=== PATIENT | female | born 1935 | race Caucasian/White ===

== ENCOUNTER 2018-09-13 09:23 | Day surgery (SDC) | payer OTHER ==
[2018-09-13] MEDS ORDERED: BENZOCAINE UNIT DOSE SPRAY HURRICAINE MM ONE (09:30)
[2018-09-13] MEDS ORDERED: ATROPINE SULFATE 1 MG/10 ML SYR IVP ONE (09:30)
[2018-09-13] MEDS ORDERED: NS 500 ML IV ONE (09:30)
[2018-09-13] MEDS ORDERED: fentaNYL 100 MCG/2 ML INJ IVP ONE (09:30)
[2018-09-13] MEDS ORDERED: MIDAZOLAM 2 MG/2 ML VIAL IVP ONE (09:30)
--- NOTE | 2018-09-13 10:16 | PDGENHP ---
History & Physical Chief Complaint: palpitations Relevant Physical Exam: s1s2 tachycardic. cta. ao3 Cardiorespiratory Assessment: for red guided cv. pt was scheduled on Wed with Dr. Agarwal but called in with worse sx. Today she is in AT with rate 146 bpm. Understands she needs to continue Eliquis.
[2018-09-13 10:28] LABS: INR 1.45 (0.83-1.16)
--- NOTE | 2018-09-13 11:19 | PDANEPAE ---
ANE Past Medical History - Cardiovascular History Hx Hypertension: No Hx Arrhythmias: Yes Hx Chest Pain: No Hx Coronary Artery / Peripheral Vascular Disease: No Hx CHF / Valvular Disease: No Hx Palpitations: No Cardiovascular History Comment: ATRIAL FIB - DX'd 2 MONTHS AGO. MITRAL REGURG. MITRAL & TRICUSPID INSUFFICIENCY. BIATRIAL ENLARGEMENT. CHRONIC CARDIOMYOPATHY. SOB WITH EXERTION. MILLICENT CARDIOVERSION 08/02/15 - Pulmonary History Hx COPD: No Hx Asthma/Reactive Airway Disease: No Hx Recent Upper Respiratory Infection: No Hx Oxygen in Use at Home: No Hx Sleep Apnea: No Pulmonary History Comment: SOB WITH EXERTION, GETTING WORSE DAILY - Neurologic History Hx Cerebrovascular Accident: No Hx Seizures: No Hx Dementia: No - Endocrine History Hx Diabetes: No - Renal History Hx Renal Disorders: No - Liver History Hx Hepatic Disorders: No - Neurological & Psychiatric Hx Hx Neurological and Psychiatric Disorders: No - Cancer History Hx Cancer: Yes Cancer History Comment: BREAST CA, R BREAST/LYMPH NODES REMOVED. SKIN - FACE BASAL CELL - Congenital Disorder History Hx Congenital Disorders: No - GI History Hx Gastrointestinal Disorders: No - Other Health History Other Health History: NEG - Chronic Pain History Chronic Pain: No - Surgical History Prior Surgeries: MILLICENT CARDIOVERSION 08/02/15. R DISTAL RADIUS ORIF 07/11/15. MASTECTOMY TRI & LYMPHECTOMY R. TONSILLECTOMY. L WRIST FX ANE Review of Systems Review of Systems: - Pacemaker Date Pacemaker Last Checked: 10/08/2015 ANE Patient History - Allergies Allergies/Adverse Reactions: hydrocodone Allergy (Severe, Verified 11/05/15 11:35) N&V Sulfa (Sulfonamide Antibiotics) Allergy (Verified 11/05/15 11:35) Other-Enter Comments - Home Medications Home Medications: Herbals/Supplements -Info Only 1 ea PO DAILY 10/01/15 [Last Taken 09/12/18] Multivitamins [Multivitamin (*)] 1 each PO DAILY 10/01/15 [Last Taken 09/12/18] Apixaban [Eliquis] 5 mg PO DAILY 09/13/18 [Last Taken 09/12/18] - Smoking Hx Smoking Status: Former smoker - Family Anes Hx Family Hx Anesthesia Complications: NEG ANE Labs/Vital Signs - Labs Result Diagrams: 09/13/18 10:05 - Vital Signs Height: 180.34 cm Weight: 77.111 kg ANE Physical Exam - Airway Neck exam: FROM Mallampati Score: Class 1 Mouth exam: normal dental/mouth exam - Pulmonary Pulmonary: no respiratory distress, clear to auscultation - Cardiovascular Cardiovascular: tachycardia - ASA Status ASA Status: II ANE Anesthesia Plan Anesthesia Plan: GA with mask
[2018-09-13] MEDS ORDERED: PROPOFOL 200 MG/20 ML VIAL ONE (11:33)
--- NOTE | 2018-09-13 11:54 | PDTEE1 ---
MILLICENT Cardioversion Procedure Procedure: electrical cardioversion, transesophageal echo Indications: other Consent: signed and in chart Anticoagulation: eliquis Procedural Details: Pads were placed in anterior-posterior position. MILLICENT probe was advanced and standard images obtained. There is no evidence of left atrial or left atrial appendage thrombus. Synchronized cardioversion attempt #1: 100J Results: normal sinus rhythm Conclusions: successful MILLICENT cardioversion Patient Problems: Problems Problem Status Onset Severe mitral regurgitation Chronic Severe tricuspid regurgitation Chronic Persistent atrial fibrillation Chronic Coronary artery disease (CAD) excluded Acute Valvular cardiomyopathy Acute S/P mitral valve repair Acute S/P tricuspid valve repair Acute S/P ablation of atrial fibrillation Acute Complete heart block, post-surgical Acute S/P placement of cardiac pacemaker Acute Acute blood loss anemia Acute Atrial fibrillation with rapid ventricular response Acute
--- NOTE | 2018-09-13 13:02 | POSTANESTH ---
Post Anesthetic Evaluation Cardiovascular Status: Normal, Stable Respiratory Status: Normal, Stable Level of Consciousness/Mental Status: Can Participate in Eval Pain Control: Adequate, Prn Tx Ordered Nausea/Vomiting Control: Adequate, Prn Tx Ordered Complications Possibly Related to Anesthesia: None Noted
--- NOTE | 2018-09-14 05:42 | CPEKG ---
Test Reason : OPEN Blood Pressure : / mmHG Vent. Rate : 143 BPM Atrial Rate : 139 BPM P-R Int : 000 ms QRS Dur : 084 ms QT Int : 334 ms P-R-T Axes : 000 -21 066 degrees QTc Int : 515 ms Supraventricular tachycardia Borderline left axis deviation ST depression, probably rate related Compared with 11/04/2018, SVT now present Confirmed by Jackie Sanchez ([id number]) on 09/14/2018 5:42:26 AM Referred By: Skinny Lou Confirmed By:Jackie Sanchez
--- NOTE | 2018-09-14 05:45 | CPEKG ---
Test Reason : OPEN Blood Pressure : / mmHG Vent. Rate : 077 BPM Atrial Rate : 072 BPM P-R Int : 166 ms QRS Dur : 089 ms QT Int : 374 ms P-R-T Axes : 084 -19 035 degrees QTc Int : 424 ms Atrial-paced complexes Borderline left axis deviation Compared with 09/13/2018 at 9:54 am, atrial pacing now present Confirmed by Jackie Sanchez ([id number]) on 09/14/2018 5:44:37 AM Referred By: Skinny Lou Confirmed By:Jackie Sanchez
== END 2018-09-13 14:00 | disposition home or self-care (01) ==
LOC: FCATH 09:23
PROVIDERS: ATTEND Internal Medicine Cardiovascular Disease
PROC: 5A2204Z Restoration of Cardiac Rhythm, Single (ICD-10-PCS; principal; 2018-09-13)
PROC: B245ZZ4 Ultrasonography of Left Heart, Transesophageal (ICD-10-PCS; principal; 2018-09-13)
DX: I47.1 Supraventricular tachycardia (principal); Z95.0 Presence of cardiac pacemaker; Z79.01 Long term (current) use of anticoagulants; Z85.3 Personal history of malignant neoplasm of breast; Z90.11 Acquired absence of right breast and nipple; Z85.828 Personal history of other malignant neoplasm of skin; Z87.891 Personal history of nicotine dependence
CPT/HCPCS: J0461; J2704

== ENCOUNTER 2018-09-14 14:25 | Observation (INO) | payer OTHER ==
[2018-09-14] MEDS ORDERED: ONDANSETRON DISINTEGRATING 4 MG TAB PO PRN (16:08)
[2018-09-14] MEDS ORDERED: ACETAMINOPHEN 325 MG TAB PO PRN ×2 (16:08→18:43)
[2018-09-14] MEDS ORDERED: FUROSEMIDE 40 MG/4 ML VIAL IVP ONE ×2 (16:12→20:00)
--- NOTE | 2018-09-14 16:56 | GHP ---
[f rep st] HISTORY AND PHYSICAL DATE OF ADMISSION: 09/14/2018 PRIMARY DOWEL MAKER: Dr. Cabral. CHIEF COMPLAINT: Shortness of breath. HISTORY OF PRESENT ILLNESS: Destiny is an 83-year-old female, who was recently found to have atrial tachycardia and atrial flutter on pacer check. Apparently , it had been going on for a week or so when it was detected on routine interrogation. She has a history of a mitral valve repair, tricuspid valve repair, and maze procedure with left atrial appendage resection in 2016. This was complicated by intermittent complete heart block, for which she had a pacer implanted. She had been off systemic anticoagulation for the recent past due to no episodes of atrial fibrillation. After being found to be in atrial fibrillation recently, she started to note her heart was racing quite a bit more. She therefore proceeded to MILLICENT-guided cardioversion yesterday. She called to our office today after awakening this morning and noting that she was very short of breath with minimal exertion. Typically, she will get up in the morning and go feed the chickens. This is an uphill walk. With that she noted a feeling of shortness of breath, which is quite unusual for her. She also notices a sensation of chest tightness. She denies any cough, hemoptysis, PND, orthopnea, palpitations, chest pain, peripheral edema, or abdominal distention. She has not been having any fever, chills. PAST MEDICAL HISTORY: 1. Paroxysmal atrial fibrillation. 2. Complete heart block. 3. Mitral valve repair. 4. Tricuspid valve repair. 5. Permanent pacemaker implantation. 6. Maze procedure. 7. Left atrial appendage ligation. 8. History of breast biopsy and mastectomy. SOCIAL HISTORY: Patient is a former smoker. She reports occasional alcohol. She is . Her daughter, Ting, is a physician who lives out of state. MEDICATIONS: Outpatient medications include only Eliquis 5 mg p.o. twice daily. ALLERGIES: Hydrocodone and opioids. REVIEW OF SYSTEMS: As per HPI. A complete 10-point review of systems was obtained and is negative except for what is dictated. PHYSICAL EXAM: VITALS: No vitals have been entered yet. GENERAL: She is a very pleasant female in no apparent distress. HEENT: Head is normocephalic, atraumatic. Eyes are without scleral icterus. Mucous membranes are moist. NECK: She does have slight JVD. HEART: Regular rate and rhythm with no rubs, gallops, or murmurs. LUNGS: Clear to auscultation. ABDOMEN: Soft with normoactive bowel sounds. SKIN: Warm and dry without any significant edema. PSYCH: Normal mood and affect. NEURO: No focal deficits detected. : No Bourne present. DATA REVIEWED: 12-lead ECG from yesterday personally interpreted, demonstrates an A paced rhythm. This was post cardioversion. I do not have the MILLICENT report, but it was reported that she has moderate mitral regurgitation on this. Her last in office transthoracic echocardiogram is dated 03/27/2016, EF of 65%. Pseudo normalized pattern and elevated LV filling pressures. Mildly dilated right atrium, mitral annuloplasty ring is present. RVSP is within normal limits. IMPRESSION AND PLAN: Ms Destiny Tomlinson is an 83-year-old female, who presents with acute onset of shortness of breath starting this morning. This is associated with chest constriction. 1. Congestive heart failure. This is by acute onset of symptoms and jugular venous distention present on physical exam. We will obtain BNP and chest x-ray now. She will be given 1 dose of Lasix now. 2. History of mitral valve disease and tricuspid valve disease. She is status post mitral valve repair and tricuspid valve repair. Transesophageal echo was obtained and reports moderate mitral regurgitation. We will obtain transthoracic echo now to further evaluate tricuspid valve repair, as well as ejection fraction in sinus rhythm 3. Paroxysmal atrial fibrillation. She has a CHADS-VASc of likely 3 or 4. She will be continued on her Eliquis. She appears to be maintaining sinus rhythm at this point. 4. Elevated blood pressures. This may be the canal driver for her recurrent atrial fibrillation. We will discuss starting antihypertensive therapy in this admission. 5. Length of stay: She will be admitted as an observation visit for now. Should she require more IV Lasix dosing versus further testing, she will be transitioned to inpatient status. /[id number]/MODL MTDD
--- NOTE | 2018-09-14 18:30 | CPEKG ---
Test Reason : OPEN Blood Pressure : / mmHG Vent. Rate : 092 BPM Atrial Rate : 088 BPM P-R Int : 163 ms QRS Dur : 087 ms QT Int : 361 ms P-R-T Axes : 102 000 032 degrees QTc Int : 447 ms Atrial-paced complexes Confirmed by Jackie Sanchez ([id number]) on 09/14/2018 6:29:33 PM Referred By: Skinny Lou Confirmed By:Jackie Sanchez
[2018-09-14 18:38] LABS: PLATELET COUNT 203 10^3/uL (150-400)
[2018-09-14] MEDS: APIXABAN 5 MG TAB PO SCH (20:38)
[2018-09-15] MEDS: APIXABAN 5 MG TAB PO SCH (08:45)
[2018-09-15 12:24] VITALS: BP 117/72
--- NOTE | 2018-09-15 12:29 | ASMTDCNOTE ---
Case Management Discharge Discharge Order Complete? Answers: Yes Patient to Obtain Answers: Independently Medications Transportation Arranged Answers: Family/Friends Discharge Comments Notes: Patient is an 83-year old female. Patient came in with shortness of breath. CM met with patient. Patient lives with her daughter and family. Patients son is transporting her home. Patient is medically discharging independent. No further CM needs noted at this time. Date Signed: 09/15/2018 12:28 PM Electronically Signed By:Val Staples
--- NOTE | 2018-09-15 12:35 | ASDISCHSUM ---
Discharge Information Plan Status:Home with No Needs Medically Cleared to Leave: Discharge Date: CM D/C Disposition:Home, Routine, Self-Care ADT D/C Disposition:Home, Routine, Self-Care Projected Discharge Date:09/15/2018 12:00 AM Transportation at D/C:Friend Discharge Delay Reason: Follow-Up Date:09/15/2018 12:00 AM Discharge Slot: Final Diagnosis: Placement Information Patient Contact Information Contact Name:REBECCA Relationship:Ilya Address:[address] City:[place] Alternate Phone: State/Zip Code:[place] [address] Email: Financial Information Financial Class:Medicare Advantage Plans Primary Plan Desc:[facility] ADV[facility]AGE PLANS Primary Plan Number:[id number] Secondary Plan Desc: Secondary Plan Number: Assessment Information Case Management Discharge Plan Note Case Management Discharge Discharge Order Complete? Answers: Yes Patient to Obtain Answers: Independently Medications Transportation Arranged Answers: Family/Friends Discharge Comments Notes: Patient is an 83-year old female. Patient came in with shortness of breath. CM met with patient. Patient lives with her daughter and family. Patients son is transporting her home. Patient is medically discharging independent. No further CM needs noted at this time. Date Signed: 09/15/2018 12:28 PM Electronically Signed By:Val Staples LACE JORJE Length of stay for Answers: 1 day current admission Acuity / Level of Answers: No Care: Did the patient have an inpatient admission? Comorbidities - select Answers: Other Notes: Atrial all that apply Fibrillation, complete heart block, # of Emergency department Answers: 0 visits in the last 6 months Score: 2 Date Signed: 09/15/2018 12:34 PM Electronically Signed By:Val Staples Intervention Information
--- NOTE | 2018-09-15 13:54 | GDS ---
[f rep st] DISCHARGE SUMMARY DISCHARGE DIAGNOSES: 1. Diastolic congestive heart failure, likely related to 1 week of atrial fibrillation with rapid ve ntricular response. 2. Atrial fibrillation with rapid ventricular response, status post recent cardioversion on 09/14/19 19. 3. History of mitral valve disease and tricuspid valve disease, status post mitral , tricuspid valve repairs, Maze, left atrial appendage ligation. PROCEDURES: 09/15/2018, chest x-ray, which shows chronic small right pleural effusion versus right b asilar pleural parenchymal scarring. BRIEF HISTORY: Please see dictated H and P for complete details. In brief, the patient is an 83-yea r-old female with a history of mitral, tricuspid valve surgery in 2016. She had been noted to have a trial fibrillation perioperatively. She has been doing well and had been off anticoagulation. Recen arpita on pacer check, she was noted to have atrial fibrillation for the past week. Over the next sever al days, she started to feel her heart was racing quite a bit more. She, therefore, proceeded to MILLICENT -guided cardioversion on 09/13/2018. The next day, she noted acute onset of dyspnea on minimal exert ion. Her BNP in this admission was mildly elevated at 548. She had an echocardiogram, which prelimi narily shows EF of 63% with mitral and tricuspid valve rings with mild MR and trace TR. The patient was treated with 40 mg of IV Lasix and had 3000 mL of urine output overnight. On day of discharge, she is feeling quite well. Her dyspnea has resolved. She has not noted any PND, orthopne a, chest constriction, palpitations. PHYSICAL EXAM: VITAL SIGNS: On day of discharge, blood pressure 117/72, heart rate of 86, respirati ons 18, O2 saturation 93% on room air, temp of 98.6 degrees Fahrenheit. Her admission weight was 75 kilos. Her discharge weight is 70 kilos. GENERAL: She is a very pleasant female in no apparent dis tress. HEENT: Normocephalic, atraumatic. Eyes are without scleral icterus. HEART: Regular rate a nd rhythm. LUNGS: Clear. EXTREMITIES: Without any edema. LABORATORY/IMAGING: Sodium 132, potassium 4.2, chloride 96, CO2 28, BUN 9, creatinine 0.6, glucose o f 84. TSH 1.98. A 12-lead ECG shows A paced rhythm. RESULTS PENDING: None. DIET: Low-salt diet. ACTIVITY: As tolerated. DISCHARGE MEDICATIONS: Please see medication reconciliation. She will be discharged on Eliquis 5 mg p.o. b.i.d. she is offered a beta waqas therapy, but would like to defer this. She is also offer ed p.o. Lasix, she would like to take this as a p.r.n. basis. DISCHARGE INSTRUCTIONS: 1. Follow up with EP as scheduled. 2. Daily weights with blood pressure and pulse checks. 3. Report any increase in weight greater than 2 pounds in a day. /[id number]/MODL
--- NOTE | 2018-09-15 16:40 | ECHO ---
[email or web address] [address] Main: [phone] Echocardiography Examination Transthoracic Name: DOC HANSEN MR#: [id number] Study Date: 09/15/2018 Study Time: 10:36 AM Date of : 1935 Age: 83 year(s) Height: 180.3 cm (71 in.) Weight: 72.58 kg (160 lb.) BSA: 1.92 m2 Gender: Female Examination: Echo Contrast: Image Quality: Rhythm: Normal sinus rhythm Heart Rate: 94 bpm BP: 111 mmHg/70 mmHg Indication: CHF, Mitral and Tricuspid valved repair, Pacemaker Procedure Staff Referring Physician: Metal Sprayer [employer]: Ronni Parker RDCS Reading Physician: Yovanny Oliveira MD Requesting Provider: Ordering Physician: Ting Fernandez Indication: CHF, Mitral and Tricuspid valved repair, Pacemaker Measurements Chambers AV/MV Label Value Normal Value Label Value Normal Value LVOT Vmax 0.66 m/s (0.7m/s - 1.1m/s) MV E Vmax 1.9 m/s LVOTd 1.9 cm (1.8cm - 2cm) MV A Vmax 1.23 m/s LVOT VTI 11.8 cm (18cm - 22cm) MV E/A 1.54 LVDd, MM 4 cm (3.9cm - 5.3cm) MV VTI 43.1 cm LVDd, 2D 4.3 cm (3.9cm - 5.3cm) MVA D (continuity eq.) 0.8 cm2 LVDs, MM 2.6 cm (2cm - 3.8cm) MV PGmax 14 mmHg LVDs, 2D 3 cm (2.1cm - 4cm) MV PGmean 6 mmHg IVSd, MM 1 cm (0.6cm - 0.9cm) MV Giovanna 3.1 cm IVSd, 2D 0.9 cm (0.6cm - 1.1cm) MR Reg. Volume 23 ml LVPWd, MM 0.9 cm (0.6cm - 0.9cm) MR Reg. Fraction 7 % LVPWd, 2D 0.9 cm MR Vmax 4.57 m/s LVEF, 2D 60 % (54% - 74%) MR VTI 119 cm LVOT PGmean 1 mmHg MR (ERO) 0.19 cm2 LVOT Vmean 0.41 m/s MR PISA Radius 0.6 cm RVDd, 2D 1.7 cm (1.9cm - 3.8cm) MR PISA Alias V. 38.5 cm/s LADs, 2D 4.7 cm (2.7cm - 3.8cm) TV/PV RA Area 19 cm2 Label Value Normal Value Additional Vessels RA Pressure 5 mmHg Label Value Normal Value RVSP 35 mmHg Patient: DOC HANSEN Study Date: 09/15/2018 Page 1 of 2 10:36 AM AoAsc 3 cm TR Pmax 30 mmHg AoRoot, MM 3.5 cm (2.2cm - 3.7cm) TR Vmax 2.76 m/s WV End rushing Zain 0.86 cm/s PV PGmax 3 mmHg PV Vmax, Caliper 0.8 m/s (0.6m/s - 0.9m/s) Conclusions 1. The left ventricle is normal in size and function. The ejection fraction is 60%. 2. The mitral valve is status post repair. The mean gradient is 6 mm of mercury. There is moderate mitral regurgitation. 3. The aortic valve is trileaflet. There is no aortic stenosis or insufficiency. 4. The tricuspid valve is status post repair. There is trivial tricuspid regurgitation. 5. The pulmonary artery pressure estimate is 35 mm of mercury. 6. There is biatrial enlargement. Findings Left Ventricle: Left ventricle is normal in size. The EF is visually estimated to be 60 %. EF range is estimated at 60 % - 65 %. Left ventricle wall thickness is normal. There is paradoxic septal motion suggestive of bundle branch block, paced cardiac rhythm, or prior cardiac surgery. Cannot determine LAP and Diastolic Dysfunction Grade. No LV hypertrophy. Right Ventricle: Normal size right ventricle. Right ventricular systolic function is normal. There is a pacemaker lead noted in the right ventricle. Left Atrium: The left atrium is moderately dilated. Mitral Valve: Moderate mitral regurgitation. An annuloplasty ring is noted in the mitral valve position. The mean gradient is 6 mm of mercury. Aortic Valve: No aortic valve regurgitation. There is no aortic stenosis. The aortic valve is trileaflet. Tricuspid Valve: Trivial tricuspid regurgitation. Right Ventricular systolic pressure is measured at 35 mmHg. Pulmonary artery pressure normal. The tricuspid valve is status post repair. Pulmonic Valve: Pulmonic leaflets are normal in appearance and function. Trivial pulmonic valve regurgitation is present. Aorta: The aorta is normal. The aortic root size in M-mode measures 3.5 cm. The ascending aorta measures 3.0 cm. Aorta Measurements AoRoot, MM is 3.5 cm. Pericardium: No pericardial effusion. Exam Details Procedure Ordered: Echo (No Signature Object) Patient: DOC HANSEN Study Date: 09/15/2018 Page 2 of 2 10:36 AM [id number]
== END 2018-09-15 15:24 | disposition home or self-care (01) ==
LOC: F2W 15:05
PROVIDERS: ADMIT Internal Medicine Cardiovascular Disease; ATTEND Internal Medicine Cardiovascular Disease
DX: I50.30 Unspecified diastolic (congestive) heart failure (principal); I48.0 Paroxysmal atrial fibrillation; Z95.0 Presence of cardiac pacemaker; Z79.01 Long term (current) use of anticoagulants
CPT/HCPCS: 71046; 93005; 93306; G0378; G0379; J1940

== ENCOUNTER 2018-10-28 10:35 | Emergency (ER) | payer OTHER | END 2018-10-28 13:34 | disposition home or self-care (01) ==

== ENCOUNTER 2018-10-28 18:01 | Inpatient (IN) | payer OTHER ==
[2018-10-28 19:40] LABS: PLATELET COUNT 209 10^3/uL (150-400)
[2018-10-28 19:57] LABS: INR 1.17 (0.83-1.16); PROTIME(PATIENT) 14.4 SEC (12.0-15.0)
[2018-10-28] MEDS ORDERED: ACETAMINOPHEN 325 MG TAB PO PRN (20:19)
--- NOTE | 2018-10-28 20:24 | EDPHY ---
H & P Time Seen by Provider: 10/28/18 18:18 HPI/ROS: Chief complaint. Confusion HPI. Patient is an 83-year-old female seen earlier today for confusion that seemed to have resolved and had a relatively normal workup. She went home and slept. Then she awoke and again felt her thoughts were confused and she complains of waves of discomfort all over. On further questioning she says her discomfort is not pain but ill that he is feeling and goes from head to toes. Denies sickness or injury. Slight headache. No change in vision. No chest discomfort or trouble breathing. No abdominal pain. No focal weakness to arms or legs. The workup this morning revealed a sodium of 127 otherwise a normal workup. ROS 10 systems were reviewed and negative with the exception of the elements mentioned in the history of present illness Past Medical/Surgical History: Breast cancer with right lumpectomy and partial mastectomy, atrial fibrillation , cardiomyopathy, cardiac arrest with pacemaker and complete heart block. Mitral valve and tricuspid valve repair. Maze procedure. Social History: Single, nonsmoker, no alcohol Smoking Status: Former smoker Physical Exam: General Appearance: Alert pleasant well-developed female mild distress. Vital signs are stable. Eyes: Pupils equal and round no pallor or injection. ENT, tympanic membranes are normal. Pharynx without injection. Respiratory: There are no retractions, lungs are clear to auscultation. Cardiovascular: Regular rate and rhythm. Gastrointestinal: Abdomen is soft and nontender, no masses, bowel sounds normal. Neurological: Awake and alert, sensory and motor exams grossly normal. Speech is normal. Cranial nerves are normal. There is no pronator drift. Finger-to- nose is normal. [id number] is normal. Skin: Warm and dry, no rashes. Musculoskeletal: Neck is supple nontender. Extremities symmetrical, full range of motion. Psychiatric: Patient is oriented X 3, there is no agitation. Constitutional: Initial Vital Signs Temperature (C) 36.7 C 10/28/18 18:05 Heart Rate 86 10/28/18 18:05 Respiratory Rate 18 10/28/18 18:05 Blood Pressure 139/71 H 10/28/18 18:05 O2 Sat (%) 94 10/28/18 18:05 O2 Delivery Mode Room Air Allergies/Adverse Reactions: hydrocodone Allergy (Severe, Verified 10/28/18 18:05) N&V Opioids - Morphine Analogues Allergy (Verified 10/28/18 18:05) Nausea/Vomiting Sulfa (Sulfonamide Antibiotics) Allergy (Verified 10/28/18 18:05) Boil Home Medications: Medication Instructions Recorded Herbals/Supplements -Info Only 1 ea PO DAILY 10/01/15 Apixaban [Eliquis] 5 mg PO BID 09/13/18 Calcium Carbonate [Oyster Shell 500 mg PO DAILY 10/28/18 Calcium 500 mg (*)] Cholecalciferol Vit D3 [Vitamin D3 1,000 units PO DAILY 10/28/18 (*)] Cyanocobalamin [Vitamin B12 (*)] 1,000 mcg PO DAILY 10/28/18 Medical Decision Making - Diagnostics EKG Interpretation: EKG interpreted by me shows normal sinus rhythm normal interval and axis. It is a paced rhythm. No significant ST elevation or depression. Anterior T flattening in leads V2, V3. No ectopy. Rate is 79 Imaging Results: Head CT from earlier today is reviewed by me and is normal Procedures: IV normal saline ED Course/Re-evaluation: I spoke with patient's daughter who is a physician in [place] on the telephone. The patient and I discussed laboratory evaluation treatment plan including recommendation for admission. She expresses understanding and agreement I consulted discussed case with Dr. Kaplan for Neurology who recommends no further imaging tonight I consulted discussed case with Dr. Han, hospitalist, who agrees to the admission Patient is found to have a sodium of 120 down from 127 earlier today. I spoke again by telephone to the patient's daughter and we discussed the change in the sodium and the plan for admission as well as consults for Neurology. She expresses understanding and agreement Differential Diagnosis: I considered transient global amnesia. There is no evidence of intracranial bleeding and the patient is on Eliquis. I do not think that this is thrombotic or cause a stroke. She has a nonlocalizing physical exam. I suspect that her symptoms are caused by her sodium being low and further dropped from 127-120 Departure - Departure Disposition: [facility] Inpatient Acute Clinical Impression: Hyponatremia Altered mental status Qualifiers: Altered mental status type: disorientation Qualified Code(s): R41.0 - Disorientation, unspecified Condition: Fair
--- NOTE | 2018-10-28 20:36 | CPEKG ---
Test Reason : OPEN Blood Pressure : / mmHG Vent. Rate : 079 BPM Atrial Rate : 079 BPM P-R Int : 160 ms QRS Dur : 100 ms QT Int : 365 ms P-R-T Axes : 098 -06 028 degrees QTc Int : 419 ms Atrial-paced complexes Borderline T abnormalities, anterior leads Confirmed by Amor Vargas ([id number]) on 10/28/2018 8:35:39 PM Referred By: AMOR VARGAS Confirmed By:Amor Vargas
[2018-10-28] MEDS ORDERED: ONDANSETRON 4 MG/2 ML VIAL ONE (21:22)
--- NOTE | 2018-10-28 21:42 | PDGENHP ---
History and Physical - Chief Complaint confusion - History of Present Illness 83yo F with history of MVR, CHB s/p PPM, atrial flutter on eliquis who presents with confusion. Her son brought her to the ED this morning after she woke up confused. 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 In the ED, a non-contrasted CT head was unremarkable. She had a non-focal neurologic exam. Blood work was significant for a serum sodium of 127. A UA was unremarkable. Normal saline was ordered but the patient declined and did not receive any fluids. Her mental status reportedly improved some and she was discharged to home with instructions for close follow up with her PCP regarding the low sodium level. At home, she took a nap but woke up not feeling right so she re-presented to the ED at the [facility] (her daughter is an MD in [place]). Her serum sodium was found to be 120. Upon my evaluation, she has a difficult time characterizing why she feels different but she "just feels off." She had one episode of emesis and remains slightly nauseated but otherwise denies recent fevers, chills, diarrhea , abdominal pain, shortness of breath, leg swelling. No recent medication changes. She has not been thirsty and has not been drinking an excessive amount of water. She has been urinating normally. She is slow to respond. She is being admitted for further evaluation and care. History Information - Allergies/Home Medication List Allergies/Adverse Reactions: hydrocodone Allergy (Severe, Verified 10/28/18 18:05) N&V Opioids - Morphine Analogues Allergy (Verified 10/28/18 18:05) Nausea/Vomiting Sulfa (Sulfonamide Antibiotics) Allergy (Verified 10/28/18 18:05) Boil Home Medications: Herbals/Supplements -Info Only 1 ea PO DAILY 10/01/15 [Last Taken 10/28/18] Apixaban [Eliquis] 5 mg PO BID 09/13/18 [Last Taken 10/28/18] Calcium Carbonate [Oyster Shell Calcium 500 mg (*)] 500 mg PO DAILY 10/28/18 [ Last Taken 10/28/18] Cholecalciferol Vit D3 [Vitamin D3 (*)] 1,000 units PO DAILY 10/28/18 [Last Taken 10/28/18] Cyanocobalamin [Vitamin B12 (*)] 1,000 mcg PO DAILY 10/28/18 [Last Taken ] I have personally reviewed and updated: family history, medical history, social history, surgical history - Past Medical History Additional medical history: atrial flutter/fibrillation, CHB, MVR, moderate MR, tricuspic valve repair, ocular migraine, diastolic CHF (in setting of rapid HR) - Surgical History Additional surgical history: MV replacement, tricuspic valve repair, Cartwright Maze IV , ELIZABETH ligation, PPM placement - Family History Positive for: non-pertinent - Social History Smoking Status: Former smoker Alcohol Use: Occasionally Drug Use: None Additional social history: Lives with son and daughter in law and their children. 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 Review of Systems Review of Systems: ROS: 10pt was reviewed & negative except for what was stated in HPI & below Physical Exam Physical Exam: Temp Pulse Resp BP Pulse Ox 36.7 C 84 16 139/83 H 95 10/28/18 20:28 10/28/18 20:28 10/28/18 20:28 10/28/18 20:28 10/28/18 20:28 Constitutional: no apparent distress, appears nourished, not in pain Eyes: PERRL, anicteric sclera, EOMI Ears, Nose, Mouth, Throat: moist mucous membranes, hearing normal, ears appear normal, no oral mucosal ulcers Cardiovascular: regular rate and rhythym, no murmur, rub, or gallop, No edema Respiratory: no respiratory distress, no rales or rhonchi, clear to auscultation Gastrointestinal: normoactive bowel sounds, soft, non-tender abdomen, no palpable masses Genitourinary: no bladder fullness, no bladder tenderness Skin: warm, normal color, no rashes or abrasions, no fluctuance, no induration, No mottled Musculoskeletal: full muscle strength, no muscle tenderness, normal joint ROM, no joint effusions Neurologic: sensation intact bilaterally, CN II-XII Intact, other (alert, mostly oriented but slow to respond), No weakness, No pronator drift, No facial droop Psychiatric: encephalopathic Lab Data & Imaging Review 10/28/18 19:31 10/28/18 21:33 WBC 9.10 10^3/uL (3.80-9.50) 10/28/18 19: RBC 4.37 10^6/uL (4.18-5.33) 10/28/18 19: Hgb 13.5 g/dL (12.6-16.3) 10/28/18 19: Hct 38.5 % (38.0-47.0) 10/28/18 19: MCV 88.1 fL (81.5-99.8) 10/28/18: MCH 30.9 pg (27.9-34.1) 10/28/18: MCHC 35.1 g/dL (32.4-36.7) 10/28/18: RDW 12.9 % (11.5-15.2) 10/28/18: Plt Count 209 10^3/uL (150-400) 10/28/18: MPV 10.2 fL (8.7-11.7) 10/28/18: Neut % (Auto) 79.0 % (39.3-74.2) H 10/28/18: Lymph % (Auto) 14.6 % (15.0-45.0) L 10/28/18: Wilcox % (Auto) 4.1 % (4.5-13.0) L 10/28/18: Eos % (Auto) 1.9 % (0.6-7.6) 10/28/18: Baso % (Auto) 0.3 % (0.3-1.7) 10/28/18: Nucleat RBC Rel Count 0.0 % (0.0-0.2) 10/28/18: Absolute Neuts (auto) 7.19 10^3/uL (1.70-6.50) H 10/28/18: Absolute Lymphs (auto) 1.33 10^3/uL (1.00-3.00) 10/28/18: Absolute Monos (auto) 0.37 10^3/uL (0.30-0.80) 10/28/18: Absolute Eos (auto) 0.17 10^3/uL (0.03-0.40) 10/28/18 19:31 Absolute Basos (auto) 0.03 10^3/uL (0.02-0.10) 10/28/18 19:31 Absolute Nucleated RBC 0.00 10^3/uL (0-0.01) 10/28/18 19: Immature Gran % 0.1 % (0.0-1.1) 10/28/18 19: Immature Gran # 0.01 10^3/uL (0.00-0.10) 10/28/18 19: PT 14.4 SEC (12.0-15.0) 10/28/18 19: INR 1.17 (0.83-1.16) H 10/28/18 19: APTT 29.4 SEC (23.0-38.0) 10/28/18 19:31 Sodium 120 mEq/L (135-145) L 10/28/18 19: Potassium 3.8 mEq/L (3.5-5.2) 10/28/18: Chloride 89 mEq/L (97-110) L 10/28/18 19:31 Carbon Dioxide 24 mEq/l (22-31) 10/28/18 19: Anion Gap 7 mEq/L (6-14) 10/28/18 19:31 BUN 9 mg/dL (7-23) 10/28/18 19:31 Creatinine 0.4 mg/dL (0.6-1.0) L 10/28/18 19:31 Estimated GFR > 60 10/28/18 19: Glucose 111 mg/dL (70-100) H 10/28/18 19:31 Serum Osmolality 257 mosmo/kg (280-297) L 10/28/18 19:31 Uric Acid 2.0 mg/dL (2.5-6.8) L 10/28/18 19:31 Calcium 8.6 mg/dL (8.5-10.4) 10/28/18 19: POC Troponin I 0.01 ng/mL (0.00-0.08) 10/28/18 19:35 Cortisol PM Sample 20.7 ug/dL (1.7-14.1) H 10/28/18 19:31 Interpretation: CXR: pacemaker, MV and TV rings, mildly enlarged heart, shaggy right heart border, mild cephalization of vessels, no pleural effusion, no pneumonia (reviewed/interp by me) EKG additional interpertation: ECG: a-paced, no ischemia (reviewed/interp by me) Assessment & Plan Assessment: 83yo F with history of MVR, CHB s/p PPM, atrial flutter on eliquis who presents with confusion found to be severely hyponatremic. Plan: 1. Acute symptomatic hyponatremia: Na 127->120 in 9 hours. Previously normal or low 130s. Appears euvolemic. Suspicious for SIADH but unclear what is driving this. No offending medications, not on diuretic. Has some nausea but no significant GI losses. CXR without mass/pneumonia. CT head unremarkable. - Discussed with renal - Urine osm, Na pending - Trial 100ml of 3% NS (administer over 30 minutes) - Recheck Na after above and then q3h - 1.2L fluid restriction - Check cortisol, TSH - Control nausea, antiemetics PRN 2. Acute metabolic encephalopathy: Highly suspect related to #1. CT head negative for bleed. Non-focal neurologic exam. 3. Atrial fibrillation: Continue eliquis for stroke prevention. 4. CHB s/p PPM: A-paced rhythm on admit ECG. 5. H/o MVR and tricuspid valve repair VTE ppx: therapeutic anticoagulation Code: full Dispo: admit as inpatient to ICU I spent a total of 40 minutes of critical care time involving this patient.
[2018-10-28] MEDS ORDERED: ONDANSETRON 4 MG/2 ML VIAL IVP PRN (23:15)
[2018-10-28] MEDS: APIXABAN 5 MG TAB PO SCH (23:23)
[2018-10-28] MEDS ORDERED: SODIUM Cl 3% 100 ML IV ONE (23:30)
[2018-10-29] MEDS ORDERED: SODIUM CHLORIDE 1,000 MG TAB PO ONE (01:30)
[2018-10-29 06:29] LABS: PLATELET COUNT 201 10^3/uL (150-400)
[2018-10-29] MEDS: APIXABAN 5 MG TAB PO SCH ×2 (08:12→20:14)
[2018-10-29] MEDS ORDERED: NS 1,000 ML IV SCH (08:45)
--- NOTE | 2018-10-29 09:38 | PDCONSULT ---
Hay Sorter Note: ASSESSMENT 83-year-old female with diastolic heart failure, MVR and TV are 2016 and AFib status post relatively recent MILLICENT and cardioversion August 2018 admitted with myalgias and hyponatremia. Appears relatively euvolemic on exam however she does have some pulmonary venous congestion on chest x-ray and cardiomegaly. 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 She denies thiazide diuretics, new supplements, weight loss, fevers chills or B symptoms to suggest malignancy. Urine sodium was low normal an urine osmolality were not significantly elevated. Patient went from 128-120 relatively acutely so she should tolerate a relatively quicker correction with low risk for CPM # hyponatremia. Mixed etiology. Euvolemic versus mild hypervolemia as above # SIADH. Mild # confusion. Resolved # diastolic dysfunction # atrial fibrillation. On Eliquis. 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 Left subclavian pacer in place PLAN # trend serum sodiums q.6 # pending sodium level will give Lasix 20 IV # Feeding - 1 L fluid restriction # Analgesia APAP, # Sedation none # Thromboprophylaxis - Eliquis # Head of bed elevated # Ulcer prophylaxis - not indicated # Glucose SSI # Skin no skin breakdown # Delirium - delirium precautions I was asked by Dr. Han of Hospital Medicine to evaluate this patient for ICU care in the setting of symptomatic hyponatremia and SIADH Chief complaint Confusion JOSE Anguiano is a very pleasant 83-year-old female with a history of mitral valve surgery and complete heart block status post pacemaker 2016 and recurrent atrial fibrillation/flutter on Eliquis as well as diastolic dysfunction was initially presented emergency department with confusion and myalgias. She had a CT head and nonfocal neurologic exam. Her initial labs were significant for a serum sodium of 128. UA unremarkable. She is given normal saline and discharged home for outpatient follow-up. She went home slap woke up and felt worse came back into the emergency department found have a serum sodium of 120. She complained of mild myalgias no is fevers or chills nausea vomiting no weight loss no night sweats no B symptoms no hemoptysis no diarrhea no constipation no vomiting. She denies recent medication changes new herbal supplements denies using marijuana, denies using any synthetic drugs, denies excessive water or alcohol intake. Allergies Opiates Medication Complete medication reconciliation has been performed. See EMR for full details Med history Mitral valve disease status post MVR, TVR, complicated by complete heart block status post pacer 2016, diastolic dysfunction, Social history Nonsmoker, nondrinker. 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 Family history No history of SIADH ROS A comprehensive 10 point review of systems was obtained is negative except as per HPI Physical exam Afebrile, heart rate 87 a paced, blood pressure 142/81, respiratory rate 16 94% on room air GEN: NAD, up in chair, interactive NEURO: A&Ox3, CN 2-12 GI, appropriate fluency, normal jail recall HEENT: PERRL, EOMI, MMM, OP clear NECK: supple, trachea midline CHEST normal shape, no pes excavatum CVS: rrr no m/r/g, no JVD appreciated PULM: CTAB, no wheezes/rales/rhonchi ABD: soft, NT, ND, NABS EXT: no swelling, no cyanosis, full ROM SKIN: warm, dry, intact, no rash PSYCH CAM negative, appropriate affect Labs Reviewed 10/29/2018 urine nausea and 273, urine sodium 29 (she had already received normal saline), admission sodium 120, follow-up sodium 128, normal hemoglobin Imaging I Personally reviewed interpreted radiographic images well as formal radiology reads 10/28/2018 CXR cardiomegaly, pulmonary venous congestion, resolution of prior pleural effusions, left subclavian pacer in place and right atrium and ventricle
--- NOTE | 2018-10-29 10:10 | PDMN ---
Medical Necessity Medical necessity: Pt meets inpt criteria per MD order and Systemic or Infectious Condition GRG, Hypo-osmolality and severe hyponatremia, 2 days. 83 y/ o presenting w/confusion admitted w/acute symptomatic hyponatremia w/Na 127 to 120 in 9 hrs, previously normal or low 130's, serum osmolality low 257, acute metabolic encephalopathy, ICU care. PMHx significant for MVR, diastolic dysfunction, CHB s/p PPM, afib. Anticipate>2MN for ongoing eval/management of above.
--- NOTE | 2018-10-29 12:42 | NEUROPROG ---
Assessment: [id number] - Neurology Consult: - CC: Dr. Mays (ER provider) consulted neurology for Confusion. Results placed in EMR. - HPI: 10/29/18: Pt with significant cardiac history (valve repair, pacemaker, afib on Eliquis) presented to [facility] ER on 10/28/18 with report of a sense of abnormal thinking. 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 Head CT unremarkable for acute changes (cannot have brain MRI due to pacemaker) but labs did show sodium as low as 120. Neurologic exam was nonfocal in ER. Nephrology was consulted for low sodium as this seemed the most likely cause of her confusion. My neurologic exam on 10/29/18 did not note any focal deficits but was not oriented to year or exact age (thought she was 85 when she is 83). It seems most likely she has symptomatic hyponatremia causing confusion. I agree with current plan. No further neurology recs so I will sign off but will be happy to get reinvolved if needed. - PMHx: afib on Eliquis, CHB, MVR, mod MR, tricuspid valve repair, ocular migraine , diastolic CHF, MV replacement, triscupsid valve repair, Cartwright Maze IV, ELIZABETH ligation, PPM placement - SHx: former tobacco user FHx: son alive - ROS: Pt denied acute fever, total vision loss, active severe chest pain, respiratory failure, total body severe rash, total bowel/bladder incontinence, psychosis, active seizures, or active bleeding - O: VS reviewed General: Alert Eyes: Fundoscopic exam not able to visualize optic disks CV: Heart RRR, no murmur, no carotid bruit Lungs: Clear to auscultation bilaterally, no rhonchi or rales Neuro: - Mental: . Oriented x person/place but not date or age . concentration appears normal . speech fluency/comprehension normal . memory appears normal . fund of knowledge appear intact - Cranial Nerves: . II: PERRL, VFFTC . III/IV/: EOMI, no nystagmus, normal smooth pursuits, no Ptosis . V: facial sensation intact to LT . VII: face symmetric to eye closure and smile . VIII: hearing intact to conversation . IX/X: uvula raises symmetrically . XI: SCM 5/5 B/L strength . XII: tongue protrudes midline w/nl strength - Motor: . Tone: normal tone in all 4 extremity . Strength: no pronator drift, strength 5/5 throughout (B/L delt, bic, tri, hand calliope player, hf/he, df/pf) - Reflexes: B/L bic 2/4 - Sensory: all 4 extremity intact to light touch - Coord: [id number] wnl, JOCELYN wnl, [id number] wnl - Gait: deferred - Labs: 10/28/18- CBC wnl, Chem Na 120-127, CL 90L, Cr 0.4L, LFT wnl, UA wnl 10/29/18- UTOX unremarkable - Rads: 10/28/18- Head CT wo: no acute intracranial changes, mild to mod atrophy, mod CMVD (I personally visualized the images on 10/29/18) - Assessment: 1. Symptomatic hyponatremia causing confusion - 2. Afib on eliquis, pacemaker, cardiac valve surgery in past - Plan: - Agree with nephrology consult - No further neurology recs, neurology will sign off Objective: Vital Signs Temp Pulse Resp BP Pulse Ox 36.7 C 90 15 120/76 93 10/29/18 11:40 10/29/18 11:40 10/29/18 11:40 10/29/18 11:40 10/29/18 11:40 Laboratory Results 10/29/18 06:20 10/29/18 09:25 10/28/18 10/29/18 10/30/18 05:59 05:59 05:59 Intake Total 450 Output Total 1100 Balance -650 PT 14.4 SEC (12.0-15.0) 10/28/18 19:31 INR 1.17 (0.83-1.16) H 10/28/18 19:31 Allergies/Adverse Reactions: hydrocodone Allergy (Severe, Verified 10/28/18 18:05) N&V Opioids - Morphine Analogues Allergy (Verified 10/28/18 18:05) Nausea/Vomiting Sulfa (Sulfonamide Antibiotics) Allergy (Verified 10/28/18 18:05) Boil
--- NOTE | 2018-10-29 13:53 | HOSPPROG ---
Hospitalist Progress Note Assessment/Plan: 1. Acute symptomatic hyponatremia: Na 127->120 in 9 hours. Previously normal or low 130s. Appears euvolemic. Suspicious for SIADH but unclear what is driving this. No offending medications, not on diuretic. Has some nausea but no significant GI losses. CXR without mass/pneumonia. CT head unremarkable. -renal consulted -she responded to hypertonic saline with increase in sodium to 128 from 120 overnight. -avoid overcorrection -cont fluid restriction -appears slightly fluid up, will await renal recs. -CXR reviewed, cardiomegaly with interstitial infiltrates suggest she may have mild chf and be fluid up. -consider dose of lasix along with fluid restriction if fails to conitnue to correct 2. Acute metabolic encephalopathy: Highly suspect related to #1. CT head negative for bleed. Non-focal neurologic exam. -neurology has evaluated, likely due to low sodium 3. Atrial fibrillation: Continue eliquis for stroke prevention. 4. CHB s/p PPM: A-paced rhythm on admit ECG. 5. H/o MVR and tricuspid valve repair VTE ppx: therapeutic anticoagulation Code: full Dispo: inpatient ICU I spent a total of 40 minutes of critical care time involving this patient. Subjective: feels fine, less confused. Objective: Vital Signs Temp Pulse Resp BP Pulse Ox 36.7 C 90 15 120/76 93 10/29/18 11:40 10/29/18 11:40 10/29/18 11:40 10/29/18 11:40 10/29/18 11:40 Laboratory Results 10/29/18 06:20 10/29/18 09:25 10/28/18 10/29/18 10/30/18 05:59 05:59 05:59 Intake Total 450 Output Total 1100 Balance -650 PT 14.4 SEC (12.0-15.0) 10/28/18 19:31 INR 1.17 (0.83-1.16) H 10/28/18 19:31 - Physical Exam Constitutional: no apparent distress, appears nourished, not in pain Eyes: PERRL, anicteric sclera, EOMI Ears, Nose, Mouth, Throat: moist mucous membranes, hearing normal, ears appear normal, no oral mucosal ulcers Cardiovascular: regular rate and rhythym, no murmur, rub, or gallop Respiratory: no respiratory distress, no rales or rhonchi, clear to auscultation Gastrointestinal: normoactive bowel sounds, soft, non-tender abdomen, no palpable masses Genitourinary: no bladder fullness, no bladder tenderness, no renal bruits Skin: no rashes or abrasions, no fluctuance, no induration Musculoskeletal: full muscle strength, no muscle tenderness, normal joint ROM Neurologic: AAOx3, sensation intact bilaterally Psychiatric: interacting appropriately, not anxious, not encephalopathic, thought process linear Lymph, Heme, Immunologic: no cervical LAD, no supraclavicular LAD ICD10 Worksheet Patient Problems: Problems Problem Status Onset Altered mental status Acute Hyponatremia Acute Acute blood loss anemia Acute Atrial fibrillation with rapid ventricular response Acute Complete heart block, post-surgical Acute Coronary artery disease (CAD) excluded Acute S/P ablation of atrial fibrillation Acute S/P mitral valve repair Acute S/P placement of cardiac pacemaker Acute S/P tricuspid valve repair Acute Valvular cardiomyopathy Acute Persistent atrial fibrillation Chronic Severe mitral regurgitation Chronic Severe tricuspid regurgitation Chronic
--- NOTE | 2018-10-29 15:36 | PDCONSULT ---
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 She has no NSAID use, TSH and cortisol wnl, CXR with no mass. - Na now up to 132, corrected by net of 5 in the past 24 hours (given first reading of 127 yesterday). - No need for salt tabs or 3%. - Would maintain on 1500ml fluid restriction (50oz). - Continue to monitor BID. - Would recommend close f/u with PCP. Thank you for the interesting consult. Nephrology will sign off but follow labs peripherally, please call if you have any additional questions or concerns. H & P Stated Complaint: nausea, PARSONS, confusion Time Seen by Provider: 10/28/18 18:18 HPI/ROS: HPI: Ms. Tomlinson is an 83 yo F with h/o diastolic dysfunction, aflutter on Eliquis, and mild hyponatremia who presented yesterday with confusion and discomfort. She presented first yesterday am to ER with above complaints, had nonfocal exam , labs unrevealing except for sodium of 127, negative head CT, so was sent home. On looking back, she often has some mild hyponatremia for years, always 130 or higher. She went home and continued to feel confused, also said she was having "waves of discomfort" over her body. She came back and repeat labs showed sodium down to 120, just 10 hours after her labs showing sodium of 127. She had no seizure, but given her mental status changes, I opted to give her 100ml of 3% saline once last night, followed by 1g sodium chloride orally after repeat sodium up to 124. She has otherwise been maintained on a fluid restriction and sodium now is up to 132. She denies any NSAIDs, notes she does follow a sodium restriction at home. She states she does not drink much water but on review of her daily habits, she actually does have significant fluid intake. Pt notes that she feels a lot better now, thinking more clearly, no discomfort. She notes she vomited once yesterday but otherwise no N/V/D. ROS: positive per HPI, rest of 10-point ROS negative Source: Patient, RN/MD - Medical/Surgical History Hx Asthma: No Hx Chronic Respiratory Disease: No Hx Diabetes: No Hx Cardiac Disease: Yes Hx Renal Disease: No Hx Cirrhosis: No Hx Alcoholism: No Hx HIV/AIDS: No Hx Splenectomy or Spleen Trauma: No Other PMH: Breast CA-rt lumpectomy/partial mastectomy, tonsils;. afib; cardiomyopothy, cardiac arrest with pacemaker, Broken wrist,. OHS:MV/TV repair w MAZE - Family History Significant Family History: No pertinent family hx - Social History Smoking Status: Former smoker - Physical Exam Exam: General: alert and oriented, no acute distress Eyes: EOMI, PERRL OP: Clear, MMM Neck: supple, no thyromegaly CV: RRR, no edema BLE Resp: CTA bilat, nonlabored respirations Abd: soft, NT/ND Neuro: CN II-XII Grossly intact, no asterixis Psych: cooperative, appropriate mood and affect Skin: C/D/I, no rash Constitutional: Initial Vital Signs Temperature (C) 36.7 C 10/28/18 18:05 Heart Rate 86 10/28/18 18:05 Respiratory Rate 18 10/28/18 18:05 Blood Pressure 139/71 H 10/28/18 18:05 O2 Sat (%) 94 10/28/18 18:05 O2 Delivery Mode Room Air Allergies/Adverse Reactions: hydrocodone Allergy (Severe, Verified 10/28/18 18:05) N&V Opioids - Morphine Analogues Allergy (Verified 10/28/18 18:05) Nausea/Vomiting Sulfa (Sulfonamide Antibiotics) Allergy (Verified 10/28/18 18:05) Boil Home Medications: Medication Instructions Recorded Herbals/Supplements -Info Only 1 ea PO DAILY 10/01/15 Apixaban [Eliquis] 5 mg PO BID 09/13/18 Calcium Carbonate [Oyster Shell 500 mg PO DAILY 10/28/18 Calcium 500 mg (*)] Cholecalciferol Vit D3 [Vitamin D3 1,000 units PO DAILY 10/28/18 (*)] Cyanocobalamin [Vitamin B12 (*)] 1,000 mcg PO DAILY 10/28/18 Lab and Imaging 10/29/18 06:20 10/29/18 13:55 WBC 7.64 10^3/uL (3.80-9.50) 10/29/18 06:20 RBC 4.36 10^6/uL (4.18-5.33) 10/29/18 06:20 Hgb 13.7 g/dL (12.6-16.3) 10/29/18 06:20 Hct 39.4 % (38.0-47.0) 10/29/18 06:20 MCV 90.4 fL (81.5-99.8) 10/29/18 06:20 MCH 31.4 pg (27.9-34.1) 10/29/18 06:20 MCHC 34.8 g/dL (32.4-36.7) 10/29/18 06:20 RDW 13.0 % (11.5-15.2) 10/29/18 06:20 Plt Count 201 10^3/uL (150-400) 10/29/18 06:20 MPV 9.9 fL (8.7-11.7) 10/29/18 06:20 Neut % (Auto) 67.9 % (39.3-74.2) 10/29/18 06:20 Lymph % (Auto) 24.1 % (15.0-45.0) 10/29/18 06:20 Hettinger % (Auto) 7.3 % (4.5-13.0) 10/29/18 06:20 Eos % (Auto) 0.3 % (0.6-7.6) L 10/29/18 06:20 Baso % (Auto) 0.3 % (0.3-1.7) 10/29/18 06:20 Nucleat RBC Rel Count 0.0 % (0.0-0.2) 10/29/18 06:20 Absolute Neuts (auto) 5.19 10^3/uL (1.70-6.50) 10/29/18 06:20 Absolute Lymphs (auto) 1.84 10^3/uL (1.00-3.00) 10/29/18 06:20 Absolute Monos (auto) 0.56 10^3/uL (0.30-0.80) 10/29/18 06:20 Absolute Eos (auto) 0.02 10^3/uL (0.03-0.40) L 10/29/18 06:20 Absolute Basos (auto) 0.02 10^3/uL (0.02-0.10) 10/29/18 06:20 Absolute Nucleated RBC 0.00 10^3/uL (0-0.01) 10/29/18 06:20 Immature Gran % 0.1 % (0.0-1.1) 10/29/18 06:20 Immature Gran # 0.01 10^3/uL (0.00-0.10) 10/29/18 06:20 PT 14.4 SEC (12.0-15.0) 10/28/18 19:31 INR 1.17 (0.83-1.16) H 10/28/18 19:31 APTT 29.4 SEC (23.0-38.0) 10/28/18 19:31 Sodium 132 mEq/L (135-145) L 10/29/18 13:55 Potassium 3.8 mEq/L (3.5-5.2) 10/29/18 06:20 Chloride 95 mEq/L (97-110) L 10/29/18 06:20 Carbon Dioxide 25 mEq/l (22-31) 10/29/18 06:20 Anion Gap 8 mEq/L (6-14) 10/29/18 06:20 BUN 8 mg/dL (7-23) 10/29/18 06:20 Creatinine 0.5 mg/dL (0.6-1.0) L 10/29/18 06:20 Estimated GFR > 60 10/29/18 06:20 Glucose 89 mg/dL (70-100) 10/29/18 06:20 Serum Osmolality 257 mosmo/kg (280-297) L 10/28/18 19:31 Uric Acid 2.0 mg/dL (2.5-6.8) L 10/28/18 19:31 Calcium 8.6 mg/dL (8.5-10.4) 10/29/18 06:20 POC Troponin I 0.01 ng/mL (0.00-0.08) 10/28/18 19:35 NT-Pro-B Natriuret Pep 582 pg/mL (0-450) H 10/29/18 00:50 TSH 1.450 uIU/mL (0.465-4.680) 10/29/18 06:20 Cortisol PM Sample 20.7 ug/dL (1.7-14.1) H 10/28/18 19:31 Urine Osmolality 273 mosmo/kg (300-900) L 10/29/18 05:00 Ur Random Creatinine 38.7 mg/dL 10/29/18 05:00 Ur Random Sodium 29 mEq/L (30-90) L 10/29/18 05:00 Urine Opiates Screen NEGATIVE (NEGATIVE) 10/29/18 05:00 Urine Barbiturates NEGATIVE (NEGATIVE) 10/29/18 05:00 Ur Phencyclidine Scrn NEGATIVE (NEGATIVE) 10/29/18 05:00 Ur Amphetamine Screen NEGATIVE (NEGATIVE) 10/29/18 05:00 U Benzodiazepines Scrn NEGATIVE (NEGATIVE) 10/29/18 05:00 Urine Cocaine Screen NEGATIVE (NEGATIVE) 10/29/18 05:00 U Marijuana (THC) Screen NEGATIVE (NEGATIVE) 10/29/18 05:00
[2018-10-30] MEDS: APIXABAN 5 MG TAB PO SCH (08:45)
[2018-10-30 11:09] VITALS: BP 126/78
--- NOTE | 2018-10-30 12:34 | ASMTDCNOTE ---
Case Management Discharge Discharge Order Complete? Answers: Yes Patient to Obtain Answers: Independently Medications Transportation Arranged Answers: Family/Friends Transport will Pick (Date 10/30/2018 12:00 AM & Time) Family Notified Answers: Yes Notes: by pt Discharge Comments Notes: CM spoke with pt and RN in the room. RN reports pt still has some short term memory issues, but lives downstairs from her son and his , work and lives independently. OT receommended independent discharge and PT did not see pt. Pt is comfortable with independent d/c and so is RN. No CM needs noted at this time. Date Signed: 10/30/2018 12:34 PM Electronically Signed By:Katiuska Pearson. EBONY
--- NOTE | 2018-10-30 12:39 | ASDISCHSUM ---
Discharge Information Plan Status:Home with No Needs Medically Cleared to Leave:10/30/2018 Discharge Date:10/30/2018 CM D/C Disposition:Home, Routine, Self-Care ADT D/C Disposition:Home, Routine, Self-Care Projected Discharge Date:10/30/2018 Transportation at D/C:Family Discharge Delay Reason: Follow-Up Date:10/30/2018 Discharge Slot: Final Diagnosis:hyponatremia Placement Information Patient Contact Information Contact Name:REBECCA Relationship:Ilya Address:[address] City:[place] Alternate Phone: [facility]/Zip Code:[place] [address] Email: Financial Information Financial Class:Medicare Advantage Plans Primary Plan Desc:[facility] [employer] PLANS Primary Plan Number:[id number] Secondary Plan Desc: Secondary Plan Number: Assessment Information Case Management Discharge Plan Note Case Management Discharge Discharge Order Complete? Answers: Yes Patient to Obtain Answers: Independently Medications Transportation Arranged Answers: Family/Friends Transport will Pick (Date 10/30/2018 12:00 AM & Time) Family Notified Answers: Yes Notes: by pt Discharge Comments Notes: CM spoke with pt and RN in the room. RN reports pt still has some short term memory issues, but lives downstairs from her son and his , work and lives independently. OT receommended independent discharge and PT did not see pt. Pt is comfortable with independent d/c and so is RN. No CM needs noted at this time. Date Signed: 10/30/2018 12:34 PM Electronically Signed By:Katiuska Pearson. RN LACE LACE Length of stay for Answers: 2 days current admission Acuity / Level of Answers: Yes Care: Did the patient have an inpatient admission? 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 RN Intervention Information
--- NOTE | 2018-10-30 15:26 | PDDCSUM ---
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 Nephrology was consulted and she was given a dose of hypertonic saline and a salt tablet and placed on a fluid restriction. Her urine studies were consistent with an SIADH picture and her sodium corrected and in appropriate manner. Her encephalopathy resolved and was thought to be secondary to her hyponatremia. Her sodium corrected to a normal level and she was told to continue with a 1500 cc fluid restriction and increased her salt intake on discharge. She was also told that she needed to follow up with her primary care physician within a week and if her sodium had trended back down she might need to start Lasix. She was evaluated by Occupational therapy who felt that she was fine to go home independent. She was discharged home to follow up with her primary care provider for further evaluation of on management of her underlying medical problems. Disposition Home independent New medications None I spent over 30 min on the discharge of this patient
== END 2018-10-30 12:40 | disposition home or self-care (01) | DRG 643 ==
LOC: F2N 21:12
PROVIDERS: ADMIT Internal Medicine; ATTEND Internal Medicine
DX: E22.2 Syndrome of inappropriate secretion of antidiuretic hormone (principal); G93.41 Metabolic encephalopathy; I48.91 Unspecified atrial fibrillation; Z95.0 Presence of cardiac pacemaker; Z85.3 Personal history of malignant neoplasm of breast; Z87.891 Personal history of nicotine dependence; Z79.01 Long term (current) use of anticoagulants
CPT/HCPCS: 80305; 84484-ER; 92523-GN; 97165-GO; J2405